=== PATIENT | female | born 1995 | race Caucasian/White ===

== ENCOUNTER 2017-11-22 13:01 | Day surgery (SDC) | payer OTHER ==
[2017-11-22] MEDS ORDERED: FENTAnyl 50 MCG/ML VIAL ×2 (13:49→14:35)
[2017-11-22] MEDS ORDERED: MIDAZOLAM 1 MG/ML 2 ML INJ (13:49)
[2017-11-22] MEDS ORDERED: DEXAMETHASONE 4 MG/ML 1 ML INJ (13:56)
[2017-11-22] MEDS ORDERED: ROCURONIUM 50 MG INJ (13:56)
[2017-11-22] MEDS ORDERED: ONDANSETRON 4 MG INJ (13:56)
[2017-11-22] MEDS ORDERED: PROPOFOL 20 ML (13:56)
[2017-11-22] MEDS ORDERED: LIDOCAINE 2% (SDV) 5 ML INJ (13:56)
[2017-11-22] MEDS ORDERED: SUGAMMADEX SODIUM 200 MG/2 ML VIAL IV (14:12)
[2017-11-22] MEDS: FENTAnyl 50 MCG/ML VIAL IV ×2 (14:38→14:45)
[2017-11-22] MEDS: ALBUTEROL 0.083% (NEB) 2.5 MG/3 ML AMP HHN (14:48)
[2017-11-22] MEDS ORDERED: MEPERIDINE 25 MG INJ IV (15:00)
[2017-11-22] MEDS ORDERED: ONDANSETRON 4 MG INJ IV (15:00)
[2017-11-22] MEDS ORDERED: FENTAnyl 50 MCG/ML VIAL IV (15:00)
== END 2017-11-22 17:23 | disposition home or self-care (01) ==
LOC: SDS 13:01
DX: J35.01 Chronic tonsillitis (principal)
CPT/HCPCS: 42821; 88302; 94664

== ENCOUNTER 2017-12-17 14:21 | Emergency (ER) | payer OTHER ==
[2017-12-17 15:42] LABS: ADD MAN DIFF? NO
[2017-12-17 15:45] LABS: WHITE BLOOD COUNT 9.7 10^3/ul (4.8-10.8)
[2017-12-17 15:45] LABS: BASOPHIL # 0.1 10^3/ul (0.0-0.1); BASOPHILS % 0.8 % (0.0-2.0); EOSINOPHILS # 0.1 10^3/ul (0.0-0.5); EOSINOPHILS % 1.2 % (0.0-7.0); HEMATOCRIT 40.9 % (37.0-47.0); HEMOGLOBIN 13.2 g/dl (12.0-16.0); LYMPHOCYTES # 2.4 10^3/ul (0.8-2.9); LYMPHOCYTES % 24.1 % (18.0-55.0); MEAN CORPUSCULAR HEMOGLOBIN 27.3 pg (29.0-33.0); MEAN CORPUSCULAR HGB CONC 32.3 g/dl (32.0-37.0); MEAN CORPUSCULAR VOLUME 84.7 fl (72.0-104.0); MEAN PLATELET VOLUME 10.8 fl (7.4-10.4); MONOCYTE # 0.7 10^3/ul (0.3-0.9); MONOCYTES % 6.7 % (0.0-13.0); NEUTROPHIL # 6.5 10^3/ul (1.6-7.5); PLATELET COUNT 264 10^3/UL (140-415); RED BLOOD COUNT 4.83 10^6/ul (4.20-5.40); RED CELL DISTRIBUTION WIDTH 13.5 % (11.5-14.5)
[2017-12-17 16:14] LABS: ADD UMIC YES; UR ASCORBIC ACID NEGATIVE (NEGATIVE); UR BACTERIA FEW /HPF (NONE SEEN); UR BILIRUBIN (Dip) NEGATIVE (NEGATIVE); UR BLOOD (Dip) 3+ mg/dL (NEGATIVE); UR CLARITY CLEAR (CLEAR); UR COLOR STRAW (YELLOW); UR GLUCOSE (Dip) NEGATIVE (NEGATIVE); UR KETONES (Dip) NEGATIVE (NEGATIVE); UR LEUKOCYTE ESTERASE (Dip) NEGATIVE Leu/ul (NEGATIVE); UR NITRITE (Dip) NEGATIVE (NEGATIVE); UR RBC 4 /HPF (0-5); UR SPECIFIC GRAVITY (Dip) 1.004 (1.003-1.030); UR TOTAL PROTEIN (Dip) NEGATIVE (NEGATIVE); UR UROBILINOGEN (Dip) NEGATIVE (NEGATIVE); UR WBC 1 /HPF (0-5)
== END 2017-12-17 17:04 | disposition home or self-care (01) ==
LOC: FTE 14:21
DX: O20.9 Hemorrhage in early pregnancy, unspecified (principal); R10.2 Pelvic and perineal pain; Z3A.01 Less than 8 weeks gestation of pregnancy
CPT/HCPCS: 36415; 76801; 76817; 81001; 84702; 85025; 86900; 86901; 99284-25

== ENCOUNTER 2018-04-20 17:07 | Emergency (ER) | payer OTHER ==
[2018-04-20] MEDS: SOD CHLORIDE 0.9% 1,000 ML IV (19:08)
[2018-04-20] MEDS: ONDANSETRON 4 MG INJ IV (19:08)
[2018-04-20 19:16] LABS: ADD MAN DIFF? NO
[2018-04-20 19:24] LABS: WHITE BLOOD COUNT 8.9 10^3/ul (4.8-10.8)
[2018-04-20 19:24] LABS: BASOPHIL # 0.1 10^3/ul (0.0-0.1); BASOPHILS % 0.8 % (0.0-2.0); EOSINOPHILS # 0.1 10^3/ul (0.0-0.5); EOSINOPHILS % 0.9 % (0.0-7.0); HEMATOCRIT 40.2 % (37.0-47.0); HEMOGLOBIN 13.4 g/dl (12.0-16.0); LYMPHOCYTES # 2.1 10^3/ul (0.8-2.9); MEAN CORPUSCULAR HGB CONC 33.3 g/dl (32.0-37.0); MEAN CORPUSCULAR VOLUME 84.1 fl (82.0-101.0); MEAN PLATELET VOLUME 11.5 fl (7.4-10.4); MONOCYTE # 0.6 10^3/ul (0.3-0.9); MONOCYTES % 6.2 % (0.0-11.0); NEUTROPHIL # 6.2 10^3/ul (1.6-7.5); NEUTROPHILS % 68.8 % (39.0-77.0); PLATELET COUNT 201 10^3/UL (140-415); RED BLOOD COUNT 4.78 10^6/ul (4.20-5.40); RED CELL DISTRIBUTION WIDTH 13.8 % (11.5-14.5)
[2018-04-20 19:31] LABS: ADD UMIC YES; UR ASCORBIC ACID NEGATIVE (NEGATIVE); UR BACTERIA FEW /HPF (NONE SEEN); UR BILIRUBIN (Dip) NEGATIVE (NEGATIVE); UR BLOOD (Dip) NEGATIVE (NEGATIVE); UR CLARITY CLEAR (CLEAR); UR COLOR YELLOW (YELLOW); UR GLUCOSE (Dip) NEGATIVE (NEGATIVE); UR KETONES (Dip) 2+ mg/dL (NEGATIVE); UR LEUKOCYTE ESTERASE (Dip) TRACE Leu/ul (NEGATIVE); UR MUCUS FEW /HPF (NONE SEEN); UR NITRITE (Dip) NEGATIVE (NEGATIVE); UR RBC 1 /HPF (0-5); UR SPECIFIC GRAVITY (Dip) 1.011 (1.003-1.030); UR SQUAMOUS EPITHELIAL CELL FEW /HPF (FEW); UR TOTAL PROTEIN (Dip) NEGATIVE (NEGATIVE); UR UROBILINOGEN (Dip) NEGATIVE (NEGATIVE); UR WBC 1 /HPF (0-5)
[2018-04-20 19:39] LABS: ALANINE AMINOTRANSFERASE 19 IU/L (13-69); ALBUMIN 4.2 g/dl (3.3-4.9); ALBUMIN/GLOBULIN RATIO 1.07; ALKALINE PHOSPHATASE 57 IU/L (42-121); ANION GAP 16 (8-16); ASPARTATE AMINO TRANSFERASE 21 IU/L (15-46); BILIRUBIN,INDIRECT 0.5 mg/dl (0-1.1); BILIRUBIN,TOTAL 0.5 mg/dl (0.2-1.3); BLOOD UREA NITROGEN 5 mg/dl (7-20); CALCIUM 9.6 mg/dl (8.4-10.2); CARBON DIOXIDE 23 mmol/L (21-31); CHLORIDE 104 mmol/L (97-110); CREATININE 0.56 mg/dl (0.44-1.00); GLUCOSE 84 mg/dl (70-220); POTASSIUM 3.7 mmol/L (3.5-5.1); SODIUM 139 mmol/L (135-144); TOTAL PROTEIN 8.1 g/dl (6.1-8.1)
== END 2018-04-20 21:07 | disposition home or self-care (01) ==
LOC: FTE 17:07
DX: O21.9 Vomiting of pregnancy, unspecified (principal); R10.2 Pelvic and perineal pain; Z3A.14 14 weeks gestation of pregnancy
CPT/HCPCS: 36415; 76805; 80053; 81001; 84702; 85025; 86900; 86901; 96374; 99284-25

== ENCOUNTER 2018-08-22 09:03 | Outpatient (CLI) | payer OTHER ==
[2018-08-22 10:13] LABS: ADD UMIC YES; UR ASCORBIC ACID NEGATIVE (NEGATIVE); UR BACTERIA FEW /HPF (NONE SEEN); UR BILIRUBIN (Dip) NEGATIVE (NEGATIVE); UR BLOOD (Dip) 1+ mg/dL (NEGATIVE); UR CLARITY CLEAR (CLEAR); UR COLOR STRAW (YELLOW); UR GLUCOSE (Dip) NEGATIVE (NEGATIVE); UR KETONES (Dip) NEGATIVE (NEGATIVE); UR LEUKOCYTE ESTERASE (Dip) TRACE Leu/ul (NEGATIVE); UR NITRITE (Dip) NEGATIVE (NEGATIVE); UR RBC 0 /HPF (0-5); UR SPECIFIC GRAVITY (Dip) 1.004 (1.003-1.030); UR TOTAL PROTEIN (Dip) NEGATIVE (NEGATIVE); UR UROBILINOGEN (Dip) NEGATIVE (NEGATIVE); UR WBC 1 /HPF (0-5)
[2018-08-22] MEDS ORDERED: LACTATED RINGER'S 1,000 ML IV (10:20)
[2018-08-22] MEDS: LACTATED RINGER'S 1,000 ML IV ×2 (10:24→16:27)
[2018-08-22 10:34] LABS: ADD MAN DIFF? NO
[2018-08-22 10:37] LABS: WHITE BLOOD COUNT 9.6 10^3/ul (4.8-10.8)
[2018-08-22 10:37] LABS: BASOPHILS % 0.3 % (0.0-2.0); EOSINOPHILS % 0.3 % (0.0-7.0); HEMATOCRIT 37.3 % (37.0-47.0); HEMOGLOBIN 12.1 g/dl (12.0-16.0); MEAN CORPUSCULAR HEMOGLOBIN 26.9 pg (29.0-33.0); MEAN CORPUSCULAR HGB CONC 32.4 g/dl (32.0-37.0); MEAN CORPUSCULAR VOLUME 83.1 fl (82.0-101.0); MEAN PLATELET VOLUME 11.8 fl (7.4-10.4); MONOCYTE # 0.7 10^3/ul (0.3-0.9); NEUTROPHIL # 7.8 10^3/ul (1.6-7.5); NEUTROPHILS % 81.7 % (39.0-77.0); PLATELET COUNT 174 10^3/UL (140-415); RED BLOOD COUNT 4.49 10^6/ul (4.20-5.40); RED CELL DISTRIBUTION WIDTH 15.1 % (11.5-14.5)
[2018-08-22] MEDS ORDERED: CEFTRIAXONE 1 GM INJ IVPB (11:30)
[2018-08-22] MEDS: TERBUTALINE 1 MG/ML INJ SC (11:32)
[2018-08-22] MEDS: SOD CHLORIDE 0.9% 1,000 ML IV (11:52)
[2018-08-22] MEDS: CEFTRIAXONE 1 GM/NS 50 ML IVPB (12:12)
[2018-08-22] MEDS ORDERED: CEFTRIAXONE 1 GM INJ IM (12:30)
[2018-08-22 14:49] LABS: CARBON DIOXIDE 22 mmol/L (21-31); CHLORIDE 106 mmol/L (97-110); POTASSIUM 3.2 mmol/L (3.5-5.1); SODIUM 137 mmol/L (135-144)
[2018-08-22 14:50] LABS: ALANINE AMINOTRANSFERASE 19 IU/L (13-69); ALBUMIN 3.5 g/dl (3.3-4.9); ALKALINE PHOSPHATASE 207 IU/L (42-121); AMYLASE 89 U/L (11-123); ANION GAP 9 (5-13); ASPARTATE AMINO TRANSFERASE 23 IU/L (15-46); BILIRUBIN,INDIRECT 0.3 mg/dl (0-1.1); BILIRUBIN,TOTAL 0.3 mg/dl (0.2-1.3); BLOOD UREA NITROGEN 4 mg/dl (7-20); CALCIUM 8.7 mg/dl (8.4-10.2); CREATININE 0.46 mg/dl (0.44-1.00); Estimated GFR > 60 mL/min (>60); GLUCOSE 67 mg/dl (70-220); LIPASE 60 U/L (23-300)
[2018-08-22] MEDS: ACETAMINOPHEN 500 MG TAB PO (16:27)
== END 2018-08-22 18:31 | disposition home or self-care (01) ==
LOC: OBT 09:03 → L-D 09:05 → OBT 18:31
DX: O36.8130 Decreased fetal movements, third trimester, not applicable or unspecified (principal); O26.893 Other specified pregnancy related conditions, third trimester; R10.9 Unspecified abdominal pain; R05 Cough; R19.7 Diarrhea, unspecified; Z3A.31 31 weeks gestation of pregnancy
CPT/HCPCS: 36415; 76705; 76817; 76818; 80053; 81001; 82150; 83690; 85025; 96360; 96361; 96368

== ENCOUNTER 2018-10-07 02:45 | Inpatient (IN) | payer OTHER ==
[2018-10-07] MEDS ORDERED: LACTATED RINGER'S 1,000 ML IV (03:37)
[2018-10-07] MEDS ORDERED: METHYLERGONOVINE 0.2 MG INJ IM ×2 (04:00→11:00)
[2018-10-07] MEDS ORDERED: OXYTOCIN 30 UNITS/LR 500 ML IV ×2 (04:00→11:00)
[2018-10-07] MEDS ORDERED: MISOPROSTOL 200 MCG TAB PR ×2 (04:00→11:00)
[2018-10-07] MEDS ORDERED: CARBOPROST 250 MCG INJ IM ×2 (04:00→11:00)
[2018-10-07] MEDS ORDERED: IBUPROFEN 600 MG TAB PO (04:00)
[2018-10-07] MEDS: LACTATED RINGER'S 1,000 ML IV ×2 (04:13→15:02)
[2018-10-07 04:34] LABS: ADD MAN DIFF? NO
[2018-10-07 04:36] LABS: WHITE BLOOD COUNT 10.8 10^3/ul (4.8-10.8)
[2018-10-07 04:36] LABS: BASOPHIL # 0.1 10^3/ul (0.0-0.1); BASOPHILS % 0.6 % (0.0-2.0); EOSINOPHILS # 0.1 10^3/ul (0.0-0.5); EOSINOPHILS % 1.1 % (0.0-7.0); HEMATOCRIT 37.4 % (37.0-47.0); HEMOGLOBIN 11.9 g/dl (12.0-16.0); LYMPHOCYTES # 2.4 10^3/ul (0.8-2.9); LYMPHOCYTES % 22.5 % (15.0-51.0); MEAN CORPUSCULAR HEMOGLOBIN 26.4 pg (29.0-33.0); MEAN CORPUSCULAR HGB CONC 31.8 g/dl (32.0-37.0); MEAN CORPUSCULAR VOLUME 82.9 fl (82.0-101.0); MEAN PLATELET VOLUME 12.2 fl (7.4-10.4); MONOCYTE # 0.9 10^3/ul (0.3-0.9); NEUTROPHIL # 7.3 10^3/ul (1.6-7.5); NEUTROPHILS % 67.3 % (39.0-77.0); PLATELET COUNT 191 10^3/UL (140-415); RED BLOOD COUNT 4.51 10^6/ul (4.20-5.40); RED CELL DISTRIBUTION WIDTH 15.3 % (11.5-14.5)
[2018-10-07 04:55] LABS: PROTIME 12.3 Sec (11.9-14.9)
[2018-10-07 04:56] LABS: PARTIAL THROMBOPLASTIN TIME 29.4 Sec (23.0-35.0)
[2018-10-07] MEDS: AMPICILLIN 2 GM/NS (PMX) 100 ML IV (05:10)
[2018-10-07 05:47] LABS: HEPATITIS B SURFACE ANTIGEN NEGATIVE (NEGATIVE)
[2018-10-07] MEDS: BUTORPHANOL 2 MG INJ IV (07:21)
[2018-10-07] MEDS ORDERED: AMPICILLIN 1 GM/NS (PMX) 50 ML IV (08:00)
[2018-10-07] MEDS: LIDOCAINE 1% (MPF) 30 ML INJ INJ (09:23)
[2018-10-07] MEDS: OXYTOCIN 30 UNITS/LR 500 ML IV ×2 (09:26→09:27)
[2018-10-07] MEDS ORDERED: ZOLPIDEM 5 MG TAB PO (11:00)
[2018-10-07] MEDS ORDERED: OXYCODONE/ASPIRIN (4.88/325) TAB PO ×2 (11:00)
[2018-10-07] MEDS: LANOLIN HPA 1 PKT TOP (11:59)
[2018-10-07] MEDS: IBUPROFEN 600 MG TAB PO ×3 (11:59→23:27)
[2018-10-07] MEDS: BENZOCAINE 20% 56 ML SPRAY TOP (11:59)
[2018-10-07] MEDS: WITCH HAZEL/GLYCERIN PAD PR (11:59)
[2018-10-07 19:42] LABS: RAPID PLASMA REAGIN NONREACTIVE (NR)
[2018-10-07] MEDS: SENNA/DOCUSATE NA (8.6MG/50MG) TAB PO (20:46)
[2018-10-08] MEDS: IBUPROFEN 600 MG TAB PO ×4 (05:34→23:45)
[2018-10-08 07:56] LABS: ADD MAN DIFF? NO
[2018-10-08 08:08] LABS: WHITE BLOOD COUNT 11.7 10^3/ul (4.8-10.8)
[2018-10-08 08:08] LABS: BASOPHIL # 0.1 10^3/ul (0.0-0.1); BASOPHILS % 0.7 % (0.0-2.0); EOSINOPHILS # 0.2 10^3/ul (0.0-0.5); EOSINOPHILS % 1.5 % (0.0-7.0); HEMATOCRIT 29.8 % (37.0-47.0); HEMOGLOBIN 9.4 g/dl (12.0-16.0); LYMPHOCYTES # 3.5 10^3/ul (0.8-2.9); LYMPHOCYTES % 29.7 % (15.0-51.0); MEAN CORPUSCULAR HEMOGLOBIN 26.4 pg (29.0-33.0); MEAN CORPUSCULAR HGB CONC 31.5 g/dl (32.0-37.0); MEAN CORPUSCULAR VOLUME 83.7 fl (82.0-101.0); MEAN PLATELET VOLUME 12.9 fl (7.4-10.4); MONOCYTES % 8.9 % (0.0-11.0); NEUTROPHIL # 6.9 10^3/ul (1.6-7.5); NEUTROPHILS % 58.4 % (39.0-77.0); PLATELET COUNT 150 10^3/UL (140-415); RED BLOOD COUNT 3.56 10^6/ul (4.20-5.40); RED CELL DISTRIBUTION WIDTH 15.3 % (11.5-14.5)
[2018-10-08] MEDS: SENNA/DOCUSATE NA (8.6MG/50MG) TAB PO ×2 (09:53→20:32)
[2018-10-08] MEDS: WITCH HAZEL/GLYCERIN PAD PR (22:51)
[2018-10-08] MEDS: LANOLIN HPA 1 PKT TOP (22:51)
[2018-10-09] MEDS: IBUPROFEN 600 MG TAB PO ×2 (05:59→12:00)
[2018-10-09] MEDS: SENNA/DOCUSATE NA (8.6MG/50MG) TAB PO (07:44)
[2018-10-09] MEDS: DIPHTH/TET/ACEL PERTUSS (ADULT) 0.5 ML VIAL IM* (09:37)
== END 2018-10-09 18:10 | disposition home or self-care (01) | DRG 807 ==
LOC: OBT 02:45 → L-D 02:45 → OBT 03:30 → L-D 03:30 → PP1 10:24
PROVIDERS: Obstetrics & Gynecology
PROC: 10E0XZZ Delivery of Products of Conception, External Approach (ICD-10-PCS; principal; 2018-10-07)
PROC: 0KQM0ZZ Repair Perineum Muscle, Open Approach (ICD-10-PCS; 2018-10-07)
DX: O69.81X0 Labor and delivery complicated by cord around neck, without compression, not applicable or unspecified (principal); Z37.0 Single live birth; O70.1 Second degree perineal laceration during delivery; Z3A.38 38 weeks gestation of pregnancy; Z23 Encounter for immunization
CPT/HCPCS: 85025; 85610; 85730; 86592; 86850; 86900; 86901; 87340; 90715